=== PATIENT | female | born 1955 | race Caucasian/White ===

== ENCOUNTER 2019-10-21 16:37 | Emergency (ER) | payer MEDICARE ==
[~2019-10-21] VITALS: Ht 157.5 cm; Wt 45.7 kg
[2019-10-21 16:51] VITALS: BP 125/83
[2019-10-21] MEDS ORDERED: NEOSPORIN OINT. PKT 1 PACKET ONE (17:15)
== END 2019-10-21 18:09 | disposition home or self-care (01) ==
LOC: ED 18:00
DX: S63.511A Sprain of carpal joint of right wrist, initial encounter (principal); S60.211A Contusion of right wrist, initial encounter; W01.0XXA Fall on same level from slipping, tripping and stumbling without subsequent striking against object, initial encounter; Y93.89 Activity, other specified; Y92.009 Unspecified place in unspecified non-institutional (private) residence as the place of occurrence of the external cause; Y99.8 Other external cause status
CPT/HCPCS: 29125; 99283

== ENCOUNTER 2020-02-26 17:51 | Emergency (ER) | payer MEDICARE ==
[~2020-02-26] VITALS: Ht 157.5 cm; Wt 49.6 kg
[2020-02-26] MEDS ORDERED: ALBUTEROL/IPRATROPIUM 2.5MG/0.5MG, 3 ML ONE (18:22)
[2020-02-26] MEDS ORDERED: ALBUTEROL/IPRATROPIUM 2.5MG/0.5MG, 3 ML NPPB ONE (18:30)
--- NOTE | 2020-02-26 18:39 | NUR ---
X RAY COMPLETED AT BEDSIDE. NEB TX BEING PERFORMED AT THIS TIME.
[2020-02-26 19:05] VITALS: BP 131/71
== END 2020-02-26 19:37 | disposition home or self-care (01) ==
LOC: ED 19:36
DX: J43.9 Emphysema, unspecified (principal); R06.00 Dyspnea, unspecified; R00.0 Tachycardia, unspecified; R06.02 Shortness of breath; R91.8 Other nonspecific abnormal finding of lung field; F17.210 Nicotine dependence, cigarettes, uncomplicated
CPT/HCPCS: 71045; 93005; 94640; 99283; 99406

== ENCOUNTER → 2020-03-18 | Outpatient (CLI) | payer MEDICARE ==
[~2020-03-18] MED LIST: OMNIPAQUE 350 MG/ML, 75ML BOTTLE ONE
== END | disposition home or self-care (01) ==
LOC: CFH 15:20
PROVIDERS: ATTEND Specialist
DX: J43.2 Centrilobular emphysema (principal); J94.8 Other specified pleural conditions; J84.10 Pulmonary fibrosis, unspecified; F12.288 Cannabis dependence with other cannabis-induced disorder
CPT/HCPCS: 71260; Q9967

== ENCOUNTER 2020-07-13 09:03 | Emergency (ER) | payer MEDICARE ==
[~2020-07-13] VITALS: Ht 154.9 cm; Wt 44.5 kg
[2020-07-13] MEDS ORDERED: ALBUTEROL/IPRATROPIUM 2.5MG/0.5MG, 3 ML NPPB ONE (09:30)
[2020-07-13] MEDS ORDERED: ALBUTEROL/IPRATROPIUM 2.5MG/0.5MG, 3 ML ONE (09:43)
--- NOTE | 2020-07-13 09:44 | NUR ---
Meds started as ordered. construction equipment technician at bedside for draw.
[2020-07-13] MEDS ORDERED: ALBU1.25 NEB (10:05)
[2020-07-13] MEDS ORDERED: ABREVA INH (10:05)
[2020-07-13 10:21] LABS: ALANINE AMINOTRANSFERASE 43 U/L (12-78); ALBUMIN 4.4 g/dL (3.4-5.0); ANION GAP 7 mmol/L (5-15); CALCIUM 9.5 mg/dL (8.5-10.1); CHLORIDE 108 mmol/L (98-107); CREATININE 1.05 mg/dL (0.55-1.02)
[2020-07-13 10:24] LABS: ALKALINE PHOSPHATASE 121 U/L (45-117); BILIRUBIN,TOTAL 0.8 mg/dL (0.2-1.0); TOTAL PROTEIN 8.4 g/dL (6.4-8.2)
[2020-07-13 10:31] LABS: BASOPHILS % (AUTO) 1 % (0-1); EOSINOPHILS % (AUTO) 6 % (1-7); LYMPHOCYTES % (AUTO) 28 % (22-44); MEAN CORPUSCULAR HEMOGLOBIN 28.7 pg (27.0-34.8); MEAN CORPUSCULAR HGB CONC 35.1 g/dL (32.4-35.8); MEAN PLATELET VOLUME 7.7 fL (7.4-10.4); MONOCYTES % (AUTO) 8 % (2-9); NEUTROPHILS % (AUTO) 58 % (42-75); PLATELET COUNT 381 x10^3/uL (130-400); RED BLOOD COUNT 6.06 x10^6/uL (3.82-5.3); RED CELL DISTRIBUTION WIDTH 14.5 % (9.6-15.2)
[2020-07-13 10:32] LABS: MD NO
--- NOTE | 2020-07-13 10:51 | NUR ---
Pt reassessed after NPPB Tx completed with decreased RR, decreased labored pattern noted and pt relaxed into [facility], no longer tripodding. Pt found off monitor secondary to needing restroom and placed back on at this time. Pt noted to be up for d/c, awaiting paperwork. VS reassessed.
[2020-07-13 10:52] VITALS: BP 100/66
== END 2020-07-13 11:01 | disposition home or self-care (01) ==
LOC: ED 10:11
DX: J44.1 Chronic obstructive pulmonary disease with (acute) exacerbation (principal); R06.02 Shortness of breath; R00.0 Tachycardia, unspecified; Z87.891 Personal history of nicotine dependence
CPT/HCPCS: 36415; 71045; 80053; 85025; 87040; 93005; 94640; 99285; J7512

== ENCOUNTER 2021-01-15 09:01 | Emergency (ER) | payer MEDICARE, OTHER ==
[~2021-01-15] VITALS: Ht 157.5 cm; Wt 46.7 kg
[~2021-01-15 09:01] MED LIST changes: +ABREVA INH; +ALBU1.25 NEB; -OMNIPAQUE 350 MG/ML, 75ML BOTTLE ONE
[2021-01-15 09:04] VITALS: BP 171/116
--- NOTE | 2021-01-15 09:07 | NUR ---
UNABLE TO OBTAIN EKG IN TRIAGE AT THIS TIME DUE TO EXCESSIVE PT MOVEMENT. ESE BURGOS, IN TRIAGE ROOM FOR ASSESSMENT.
--- NOTE | 2021-01-15 15:39 | NUR ---
VAMP SEAMER: CALLED FOR ROOM, NO ANSWER
--- NOTE | 2021-01-15 15:49 | NUR ---
WHEEL ALIGNMENT TECHNICIAN; CALLED FOR ROOM, NO NERISSAE
--- NOTE | 2021-01-15 16:00 | NUR ---
TURPENTINE DISTILLER: CALLED FOR ROOM, NO ANSWER
== END 2021-01-15 16:02 | disposition left against medical advice (07) ==
LOC: ED 15:56
DX: R06.00 Dyspnea, unspecified (principal)
CPT/HCPCS: 71046; 99283

== ENCOUNTER 2021-01-17 07:56 | Emergency (ER) | payer MEDICARE ==
[~2021-01-17] VITALS: Ht 157.5 cm; Wt 49.3 kg
[2021-01-17] MEDS ORDERED: ALBUTEROL/IPRATROPIUM 2.5MG/0.5MG, 3 ML NPPB ONE (08:30)
[2021-01-17 11:02] VITALS: BP 122/78
--- NOTE | 2021-01-17 11:06 | NUR ---
pt given dc instructions and script, educated regarding dc rx. pt a&o, resps even and unlabored, sinus tach rate 90s on supervisor sawmill with no ectopy. spo2 maintained >95% on room air. pt states "i'm feeling so much better." pt ambulatory to dc desk with steady gait, unassisted, all queestions answered.
== END 2021-01-17 11:06 | disposition home or self-care (01) ==
LOC: ED 09:56
DX: J44.1 Chronic obstructive pulmonary disease with (acute) exacerbation (principal); R06.02 Shortness of breath; Z87.891 Personal history of nicotine dependence
CPT/HCPCS: 71045; 93005; 94640; 99285; J7512